=== PATIENT | female | born 1990 | race Caucasian/White ===

== ENCOUNTER 2017-10-27 09:01 | Outpatient (CLI) | payer OTHER ==
[2017-10-27 09:45] LABS: eGFR (African) > 60; eGFR (Non-African) > 60
== END 2017-10-27 09:02 ==
LOC: LAB 09:01
PROVIDERS: ATTEND Family Medicine
DX: K81.9 Cholecystitis, unspecified (principal)
CPT/HCPCS: 36415; 80053

== ENCOUNTER 2019-06-28 11:35 | Outpatient (CLI) | payer BC ==
[2019-06-28 11:46] LABS: BASOPHILS % 0.6 % (0.0-1.5); NEUTROPHILS # 5.6 # k/uL (1.4-7.7)
--- NOTE | 2019-06-28 14:37 | Diagnostic Imaging Report ---
SUSIE NANCE [facility] [id number] [facility] [address] [place], [place]. 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 Findings: Ventricles and sulci are appropriate for patient age. Cerebrocerebellar parenchyma demonstrates normal attenuation. No evidence for parenchymal hemorrhage. No evidence for mass or mass effect. No midline shift. No extra axial fluid collections. Partial visualization of the paranasal sinuses, mastoid air cells, orbits, skull and scalp without gross irregularity. Left cerebellar region craniotomy. Impression: No acute parenchymal process. No hemorrhage. Electronically signed on Jun 28, 2019 1:36:59 PM CDT by: Fabian CONNER
== END 2019-06-28 11:37 ==
LOC: RAD 11:35
PROVIDERS: ATTEND Family Medicine
DX: R22.1 Localized swelling, mass and lump, neck (principal)
CPT/HCPCS: 36415; 70450; 85025

== ENCOUNTER → 2019-11-25 | Outpatient (CLI) | payer BC ==
[2019-11-25 13:34] LABS: BASOPHILS % 0.6 % (0.0-1.5); NEUTROPHILS # 5.2 # k/uL (1.4-7.7)
[2019-11-25 13:36] LABS: eGFR (Non-African) > 60
== END ==
LOC: LAB 12:44
PROVIDERS: ATTEND Nurse Practitioner Family
DX: R53.83 Other fatigue (principal)
CPT/HCPCS: 36415; 80053; 82306; 84443; 85025